=== PATIENT | male | born 1950 | race Caucasian/White ===

== ENCOUNTER 2020-10-09 09:08 | Emergency (ER) | payer MEDICARE, OTHER ==
[2020-10-09] MEDS ORDERED: Piperacillin/Tazobactam 4.5 GM in Sodium Chloride 0.9% 100 ML IV ONE (09:52)
[2020-10-09] MEDS ORDERED: Lactated Ringers 1,000 ML IV SCH (10:00)
--- NOTE | 2020-10-09 10:00 | EDM.PDOC ---
ED HPI GENERAL MEDICAL PROBLEM - General Chief Complaint: General Stated Complaint: HIP PAIN, ELEVATED BP Time Seen by Provider: 10/09/20 09:48 Source of Information: Reports: Patient, Family, Provider, RN Notes Reviewed History Limitations: Reports: No Limitations - History of Present Illness INITIAL COMMENTS - FREE TEXT/NARRATIVE: 70-year-old gentleman presents emergency department today with complaint of hip pain, he was initially evaluated in clinic call discussed case with clinic provider Ms. Kenny who had concern for sepsis as he had a fever tachycardic hypotensive in clinic was subsequently sent to the emergency department for further evaluation. States he started having hip pain a couple of days ago but last night got significantly worse developed a fever last night pain is worse when he lies down does get some improvement when he ambulates no nausea or vomiting no shortness of breath no other GI symptoms Left Hip Pain Score (Numeric/FACES): 9 - Related Data Allergies Allergy/AdvReac Type Severity Reaction Status Date / Time Sulfa (Sulfonamide Allergy Hives Verified 10/09/20 09:45 Antibiotics) Home Meds: Home Meds Insulin Aspart [NovoLOG] 0 unit SUBCNJ TID 10/09/20 [History] Insulin Detemir [Levemir] 40 unit SUBCUT BEDTIME 10/09/20 [History] Lisinopril/Hydrochlorothiazide [Lisinopril-Hctz 20-12.5 mg Tab] 1 tab PO DAILY 10/09/20 [History] Melatonin 10 mg PO BEDTIME 10/09/20 [History] Ubidecarenone [Coenzyme Q-10] 200 mg PO DAILY 10/09/20 [History] amLODIPine Besylate [Norvasc] 5 mg PO DAILY 10/09/20 [History] atorvaSTATin [Lipitor] 10 mg PO BEDTIME 10/09/20 [History] Past Medical History HEENT History: Reports: Impaired Vision Cardiovascular History: Reports: High Cholesterol, Hypertension Neurological History: Reports: Concussion Endocrine/Metabolic History: Reports: Diabetes, Type II - Infectious Disease History Infectious Disease History: Reports: Chicken Pox, Influenza, Measles, Mumps - Past Surgical History Musculoskeletal Surgical History: Reports: Shoulder Surgery Social & Family History - Tobacco Use Tobacco Use Status *Q: Never Tobacco User - Caffeine Use Caffeine Use: Reports: Soda - Recreational Drug Use Recreational Drug Use: No ED ROS GENERAL - Review of Systems Review Of Systems: See Below Constitutional: Reports: Fever, Chills HEENT: Reports: No Symptoms Respiratory: Reports: No Symptoms Cardiovascular: Reports: No Symptoms GI/Abdominal: Reports: No Symptoms : Reports: No Symptoms Musculoskeletal: Reports: Joint Pain (Hip pain left side) Neurological: Reports: No Symptoms ED EXAM, GENERAL - Physical Exam Exam: See Below Exam Limited By: No Limitations General Appearance: Alert, Mild Distress, Other (Chills) Respiratory/Chest: No Respiratory Distress, Lungs Clear, Normal Breath Sounds, No Accessory Muscle Use, Chest Non-Tender Cardiovascular: Regular Rate, Rhythm, No Murmur GI/Abdominal: Soft, Non-Tender Back Exam: Normal Inspection, Full Range of Motion, Other (Tenderness left side low back pelvic region). No: CVA Tenderness (R), CVA Tenderness (L) Extremities: Pedal Edema (Slight edema appreciated in the left leg) Course - Vital Signs Last Recorded V/S: Last Vital Signs Temp 99.3 F 10/09/20 11:23 Pulse 111 H 10/09/20 11:23 Resp 23 H 10/09/20 11:23 BP 108/53 L 10/09/20 11:23 Pulse Ox 91 L 10/09/20 11:23 - Orders/Labs/Meds Orders: Active Orders 24 hr Category Date Time Status Blood Pressure Mgt: Sepsis [RC] Q15MX2 Care 10/09/20 09:54 Active COVID-19/FLU A+B/RSV [MOLEC] Stat Lab 10/09/20 11:21 Ordered CULTURE BLOOD [BC] Urgent Lab 10/09/20 09:53 Ordered CULTURE BLOOD [BC] Urgent Lab 10/09/20 09:53 Ordered REFLEX LACTIC ACID YES OR NO [CHEM] Routine Lab 10/09/20 10:18 Received UA W/MICROSCOPIC [URIN] Stat Lab 10/09/20 09:53 Ordered Lactated Ringers [Ringers, Lactated] 1,000 ml Med 10/09/20 10:00 Active IV ASDIRECTED Blood Culture x2 Reflex Set [OM.PC] Urgent Oth 10/09/20 09:53 Ordered Isolation [COMM] Stat Oth 10/09/20 11:22 Ordered Severe Sepsis Onset Time [OM.PC] Stat Oth 10/09/20 09:53 Ordered Medication Orders Lactated Ringer's (Ringers, Lactated) 1,000 mls @ 999 mls/hr IV ASDIRECTED ELISSA Last Admin: 10/09/20 10:01 Dose: 999 mls/hr Documented by: CARLOS Labs: Laboratory Tests 10/09/20 10/09/20 10/09/20 Range/Units 10:01 10:01 10:01 WBC 5.4 (4.5-11.0) K/uL RBC 2.86 L (4.30-5.90) M/uL Hgb 8.8 L (12.0-15.0) g/dL Hct 27.2 L (40.0-54.0) % MCV 95 (80-98) fL MCH 31 (27-31) pg MCHC 32 (32-36) % Plt Count 151 (150-400) K/uL Neut % (Auto) 85.1 H (36-66) % Lymph % (Auto) 8.3 L (24-44) % [place] % (Auto) 5.6 (2-6) % Eos % (Auto) 0.4 L (2-4) % Baso % (Auto) 0.6 (0-1) % Sodium 140 (140-148) mmol/L Potassium 3.6 (3.6-5.2) mmol/L Chloride 100 (100-108) mmol/L Carbon Dioxide 21 (21-32) mmol/L Anion Gap 19.0 H (5.0-14.0) mmol/L BUN 30 H (7-18) mg/dL Creatinine 1.7 H (0.8-1.3) mg/dL Est Cr Clr Drug Dosing 34.17 mL/min Estimated GFR (MDRD) 40 L (>60) Glucose 129 H (74-106) mg/dL Lactic Acid (0.4-2.0) mmol/L Calcium 9.4 (8.5-10.1) mg/dL Total Bilirubin 1.5 H (0.2-1.0) mg/dL AST 42 H (15-37) U/L ALT 18 (12-78) U/L Alkaline Phosphatase 184 H (46-116) U/L Troponin I < 0.017 (0.000-0.056) ng/mL C-Reactive Protein 4.81 H (0.0-0.3) mg/dL Total Protein 7.3 (6.4-8.2) g/dL Albumin 3.8 (3.4-5.0) g/dL Globulin 3.5 (2.3-3.5) g/dL Albumin/Globulin Ratio 1.1 L (1.2-2.2) Lipase 77 (73-393) U/L Procalcitonin ng/mL 10/09/20 10/09/20 Range/Units 10:01 10:01 WBC (4.5-11.0) K/uL RBC (4.30-5.90) M/uL Hgb (12.0-15.0) g/dL Hct (40.0-54.0) % MCV (80-98) fL MCH (27-31) pg MCHC (32-36) % Plt Count (150-400) K/uL Neut % (Auto) (36-66) % Lymph % (Auto) (24-44) % [place] % (Auto) (2-6) % Eos % (Auto) (2-4) % Baso % (Auto) (0-1) % Sodium (140-148) mmol/L Potassium (3.6-5.2) mmol/L Chloride (100-108) mmol/L Carbon Dioxide (21-32) mmol/L Anion Gap (5.0-14.0) mmol/L BUN (7-18) mg/dL Creatinine (0.8-1.3) mg/dL Est Cr Clr Drug Dosing mL/min Estimated GFR (MDRD) (>60) Glucose (74-106) mg/dL Lactic Acid 8.0 H (0.4-2.0) mmol/L Calcium (8.5-10.1) mg/dL Total Bilirubin (0.2-1.0) mg/dL AST (15-37) U/L ALT (12-78) U/L Alkaline Phosphatase (46-116) U/L Troponin I (0.000-0.056) ng/mL C-Reactive Protein (0.0-0.3) mg/dL Total Protein (6.4-8.2) g/dL Albumin (3.4-5.0) g/dL Globulin (2.3-3.5) g/dL Albumin/Globulin Ratio (1.2-2.2) Lipase (73-393) U/L Procalcitonin 53.58 H* ng/mL Meds: Medications Generic Name Dose Route Start Last Admin Trade Name Freq PRN Reason Stop Dose Admin Lactated Ringer's 1,000 mls @ 999 mls/hr 10/09/20 10:00 10/09/20 10:01 Ringers, Lactated IV 999 mls/hr ASDIRECTED ELISSA Administration Discontinued Medications Generic Name Dose Route Start Last Admin Trade Name Freq PRN Reason Stop Dose Admin Piperacillin Sod/Tazobactam 100 mls @ 100 mls/hr 10/09/20 09:52 10/09/20 10:13 Sod 4.5 gm/ Sodium Chloride IV 10/09/20 10:51 100 mls/hr STAT ONE Administration Vancomycin HCl 1 gm/ Sodium 250 mls @ 150 mls/hr 10/09/20 10:34 10/09/20 11:06 Chloride IV 10/09/20 12:13 150 mls/hr ONETIME ONE Administration Sodium Chloride 70 mls @ 3 mls/sec 10/09/20 10:45 10/09/20 10:50 Normal Saline IV 10/09/20 10:46 3 mls/sec ASDIRECTED ELISSA Administration Iopamidol 80 ml 10/09/20 10:39 10/09/20 10:50 Iopamidol 612 Mg/Ml 500 Ml Multipack Bottle IV 10/09/20 10:40 80 ml ONETIME ONE Administration Sodium Chloride 10 ml 10/09/20 10:39 10/09/20 10:48 Sodium Chloride 0.9% 10 Ml Syringe FLUSH 10/09/20 10:40 10 ml ONETIME PRN Administration per radiology protocol Departure - Departure Time of Disposition: 12:29 Disposition: DC/Tfer to Acute Hospital 02 Condition: Poor Clinical Impression: Sepsis Qualifiers: Sepsis type: sepsis due to unspecified organism Sepsis acute organ dysfunction status: with acute organ dysfunction Severe sepsis acute organ dysfunction type: acute renal failure Acute renal failure type: unspecified Severe sepsis shock status: with septic shock Qualified Code(s): A41.9 - Sepsis, unspecified organism; R65.21 - Severe sepsis with septic shock; N17.9 - Acute kidney failure, unspecified - Discharge Information Referrals: Rosemary Christianson MD [Primary Care Provider] - Forms: ED Department Discharge Critical Care Note - Critical Care Note Total Time (mins): 40 Sepsis Event Note (ED) - Evaluation Sepsis Screening Result: Possible Sepsis Risk - Focused Exam Vital Signs: Vital Signs Temp Pulse Resp BP Pulse Ox 10/09/20 11:23 99.3 F 111 H 23 H 108/53 L 91 L 10/09/20 10:18 100 F 118 H 32 H 102/40 L 92 L 10/09/20 09:55 95/53 L 10/09/20 09:54 102/40 L 10/09/20 09:20 99.8 F 122 H 30 H 95/53 L 93 L - My Orders Last 24 Hours: My Active Orders 10/09/20 09:53 CULTURE BLOOD [BC] Urgent CULTURE BLOOD [BC] Urgent UA W/MICROSCOPIC [URIN] Stat Blood Culture x2 Reflex Set [OM.PC] Urgent Severe Sepsis Onset Time [OM.PC] Stat 10/09/20 09:54 Blood Pressure Mgt: Sepsis [RC] Q15MX2 10/09/20 10:00 Lactated Ringers [Ringers, Lactated] 1,000 ml IV ASDIRECTED 10/09/20 10:18 REFLEX LACTIC ACID YES OR NO [CHEM] Routine 10/09/20 11:21 COVID-19/FLU A+B/RSV [MOLEC] Stat 10/09/20 11:22 Isolation [COMM] Stat - Assessment/Plan Last 24 Hours: My Active Orders 10/09/20 09:53 CULTURE BLOOD [BC] Urgent CULTURE BLOOD [BC] Urgent UA W/MICROSCOPIC [URIN] Stat Blood Culture x2 Reflex Set [OM.PC] Urgent Severe Sepsis Onset Time [OM.PC] Stat 10/09/20 09:54 Blood Pressure Mgt: Sepsis [RC] Q15MX2 10/09/20 10:00 Lactated Ringers [Ringers, Lactated] 1,000 ml IV ASDIRECTED 10/09/20 10:18 REFLEX LACTIC ACID YES OR NO [CHEM] Routine 10/09/20 11:21 COVID-19/FLU A+B/RSV [MOLEC] Stat 10/09/20 11:22 Isolation [COMM] Stat Plan: Assessment Acuity = acute Site and laterality = sepsis Etiology = unknown Manifestations = fever Location of injury = Home Lab values = hemoglobin low at 8.8 consistent with normochromic anemia creatinine elevated 1.3 consistent with acute renal failure stage G3 B, lactic acid markedly elevated 8.0 consistent with lactic acidosis total bilirubin elevated 1.5 consistent with hyperbilirubinemia troponin was negative CRP elevated 4.81 procalcitonin markedly elevated at 53.58 CT scan describes an enlarged prostate with involvement into the bladder concern for neoplasm with pulmonary infiltrates concern for metastatic disease Plan Discussed case with Dr. Kelly emergency room physician at [address] [facility] who kindly excepted patient in transport will be transported via [facility] ground thus far blood cultures have been done been given 4.5 mg Zosyn combination 1 g Rocephin 2 L of lactated Ringer's will be transported via EMS ground This note was dictated using [employer] voice recognition software please call with any questions on syntax or grammar.
[2020-10-09] MEDS ORDERED: Sodium Chloride 0.9% 10 ML Syringe FLUSH PRN (10:39)
[2020-10-09] MEDS ORDERED: Iopamidol 612 MG/ML 500 ML Multipack Bottle IV ONE (10:39)
--- NOTE | 2020-10-09 11:10 | CR ---
CHEST: Portable 10/09/2020 at 10:41 AM CLINICAL HISTORY:Fever COMPARISON:None FINDINGS: Patient has diffuse patchy bilateral infiltrates. Heart size and pulmonary vascularity are normal. Impression: Diffuse bilateral pulmonary infiltrates.
--- NOTE | 2020-10-09 11:21 | CT ---
Abdomen Pelvis w Cont CLINICAL HISTORY: Left pelvic pain, fever COMPARISON: None. TECHNIQUE: Transverse scans were obtained from the base of the lungs to the pubic symphysis following oral contrast and IV infusion of contrast.Auto dosage reduction and iterative reconstructiontechniques employed. FINDINGS: The lung bases show diffuse patchy bilateral infiltrates and nodular densities. There is a small right pleural effusion. There is a minimal left effusion. Patient is a small hiatal hernia.. The liver shows no mass or biliary dilatation. The gallbladder has a normal appearance. The spleen has normal size and shape. The pancreas shows no mass or inflammatory change. The adrenal glands appear normal bilaterally . The kidneys contain a 1 cm cyst in the right kidney. The left kidney is hydronephrotic. There is a dilated left ureter along its length. The there is asymmetric soft tissue density and some urothelial thickening at the UVJ which is causing obstruction. The bladder base is thickened posteriorly. This is contiguous with a moderately enlarged and asymmetric prostate. There is also enlargement of the seminal vesicles.. The aorta shows diffuse atheromatous plaque without aneurysm. There are enlarged lymph nodes in the region of the inguinal canal bilaterally. Patient has had previous right inguinal hernia repair. The small intestinal gas pattern is nonspecific. The bones are heterogeneously dense with diffuse mottling. IMPRESSION: Left hydronephrosis and hydroureter. There is some urothelial thickening in the posterior bladder and involving the left UVJ causing obstruction. A urothelial nasal neoplasm is a consideration. There is also significant enlargement of the prostate which is contiguous posteriorly to this area of bladder wall thickening. Prostatic neoplasm invading the bladder base is also a consideration. Diffuse mottled density throughout the bony structures suggest sclerotic metastasis. This should be correlated with bone scan Patchy infiltrates in the lung bases with increased interstitial markings. There is also scattered nodularity. This may represent a diffuse pneumonia and/or pneumonitis. Pulmonary metastatic disease is not excluded. Right pleural effusion Inguinal and periiliac lymphadenopathy
[2020-10-09 12:26] LABS: CORONAVIRUS COVID-19 NAA NEGATIVE (NEGATIVE)
== END 2020-10-09 12:50 ==
LOC: JP.ED 09:08
DX: A41.9 Sepsis, unspecified organism (principal); R65.21 Severe sepsis with septic shock; N17.9 Acute kidney failure, unspecified; M25.552 Pain in left hip; E78.00 Pure hypercholesterolemia, unspecified; I10 Essential (primary) hypertension; E11.9 Type 2 diabetes mellitus without complications; Z79.4 Long term (current) use of insulin; Z79.899 Other long term (current) drug therapy; Z88.2 Allergy status to sulfonamides; Z20.822 Contact with and (suspected) exposure to COVID-19
CPT/HCPCS: 0241U; 36415; 71045; 71045-26; 74177; 74177-26; 80053; 83605; 83690; 84145; 84484; 85025; 86140; 87040; 87077; 96365; 96367; 99285-25; J2543; J3370; J7050; J7120; Q9967

== ENCOUNTER 2020-10-25 18:53 | Emergency (ER) | payer MEDICARE, OTHER ==
--- NOTE | 2020-10-26 00:39 | EDM.PDOC ---
ED HPI GENERAL MEDICAL PROBLEM - General Chief Complaint: Genitourinary Problem Stated Complaint: DRAIN TUBE FULL OF BLOOD, URINE IS RED Time Seen by Provider: 10/25/20 22:18 Source of Information: Reports: Patient History Limitations: Reports: No Limitations - History of Present Illness INITIAL COMMENTS - FREE TEXT/NARRATIVE: Dany is a 70-year-old male presenting to the ED for evaluation of hematuria coming from his nephrostomy tube and Craft catheter. 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 He states that his pain is manageable as long as he is not moving but the pain in the hip worsens with any type of activity. This is chronic and ongoing since his diagnosis. He is concerned because the hematuria initially was seen when he was in the hospital last week but he had cleared prior to discharge and just today started again. He called the nurse triage line who recommended that he come to the ER for evaluation. He denies any fever, chills, nausea or vomiting, worsening back pain, urgency, frequency, or burning with urination. He did have some clots in his nephrostomy tube and bag, however, the contents of the Craft were pretty much hematuria without significant clotting. - Related Data Allergies Allergy/AdvReac Type Severity Reaction Status Date / Time Sulfa (Sulfonamide Allergy Hives Verified 10/25/20 21:03 Antibiotics) Home Meds: Home Meds Insulin Aspart [NovoLOG] 0 unit SUBCNJ TID 10/09/20 [History] Insulin Detemir [Levemir] 10 unit SUBCUT BEDTIME 10/09/20 [History] Melatonin 10 mg PO BEDTIME 10/09/20 [History] Ubidecarenone [Coenzyme Q-10] 200 mg PO DAILY 10/09/20 [History] amLODIPine Besylate [Norvasc] 5 mg PO DAILY 10/09/20 [History] atorvaSTATin [Lipitor] 10 mg PO BEDTIME 10/09/20 [History] Bicalutamide [Casodex] 100 mg PO DAILY 10/25/20 [History] Past Medical History HEENT History: Reports: Impaired Vision Cardiovascular History: Reports: High Cholesterol, Hypertension Genitourinary History: Reports: Other (See Below) Other Genitourinary History: chronic craft cath. Neurological History: Reports: Concussion Endocrine/Metabolic History: Reports: Diabetes, Type II Oncologic (Cancer) History: Reports: Renal - Infectious Disease History Infectious Disease History: Reports: Chicken Pox, Influenza, Measles, Mumps - Past Surgical History Male Surgical History: Reports: Other (See Below) Other Male Surgeries/Procedures: drain in kidney Musculoskeletal Surgical History: Reports: Shoulder Surgery Social & Family History - Tobacco Use Tobacco Use Status *Q: Never Tobacco User Second Hand Smoke Exposure: No - Caffeine Use Caffeine Use: Reports: None - Recreational Drug Use Recreational Drug Use: No ED ROS GENERAL - Review of Systems Review Of Systems: See Below Constitutional: Reports: No Symptoms HEENT: Reports: No Symptoms Respiratory: Reports: No Symptoms Cardiovascular: Reports: No Symptoms Endocrine: Reports: No Symptoms : Reports: Hematuria, Other (Patient has a nephrostomy tube in the left as well as Craft catheter.) Musculoskeletal: Reports: Other (Left hip pain and back pain due to metastasis) Skin: Reports: Wound (Small amount of bleeding from the nephrostomy tube site.) Neurological: Reports: No Symptoms Psychiatric: Reports: No Symptoms Hematologic/Lymphatic: Reports: No Symptoms Immunologic: Reports: No Symptoms ED EXAM, RENAL/ - Physical Exam Exam: See Below Exam Limited By: No Limitations General Appearance: Alert, No Apparent Distress, Anxious Eye Exam: Bilateral Eye: EOMI Head: Atraumatic, Normocephalic Neck: Normal Inspection Respiratory/Chest: No Respiratory Distress, Lungs Clear, Normal Breath Sounds Cardiovascular: Normal Peripheral Pulses, Regular Rate, Rhythm, No Murmur GI/Abdominal: Normal Bowel Sounds, Soft, Non-Tender Back Exam: Decreased Range of Motion (Secondary to pain in the left hip), Other (Small amount of dried blood around the nephrostomy tube site on the skin.) Neurological: Alert, Oriented, Normal Cognition, No Motor/Sensory Deficits Psychiatric: Normal Affect Skin Exam: Warm, Dry Course - Vital Signs Last Recorded V/S: Last Vital Signs Temp 36.7 C 10/25/20 21:13 Pulse 91 10/25/20 21:13 Resp 16 10/25/20 21:13 BP 147/49 H 10/25/20 21:13 Pulse Ox 95 10/25/20 21:13 - Orders/Labs/Meds Labs: Laboratory Tests 06/09/21 06/09/21 06/09/21 Range/Units 22:45 22:45 22:45 WBC 4.9 (4.5-11.0) K/uL RBC 2.91 L (4.30-5.90) M/uL Hgb 9.0 L (12.0-15.0) g/dL Hct 27.6 L (40.0-54.0) % MCV 95 (80-98) fL MCH 31 (27-31) pg MCHC 33 (32-36) % Plt Count 256 (150-400) K/uL Add Manual Diff Yes Neutrophils % (Manual) 58 (36-66) % Band Neutrophils % 1 L (5-11) % Lymphocytes % (Manual) 28 (24-44) % Monocytes % (Manual) 11 H (2-6) % Eosinophils % (Manual) 2 (2-4) % PT 11.5 (9.5-12.0) sec INR 1.06 (0.80-1.20) APTT 26.3 L (27.0-36.0) sec Sodium 139 L (140-148) mmol/L Potassium 4.7 (3.6-5.2) mmol/L Chloride 103 (100-108) mmol/L Carbon Dioxide 25 (21-32) mmol/L Anion Gap 15.7 H (5.0-14.0) mmol/L BUN 16 (7-18) mg/dL Creatinine 1.0 (0.8-1.3) mg/dL Est Cr Clr Drug Dosing 57.00 mL/min Estimated GFR (MDRD) > 60 (>60) Glucose 359 H (74-106) mg/dL Calcium 8.6 (8.5-10.1) mg/dL Total Bilirubin 0.6 D (0.2-1.0) mg/dL AST 13 L (15-37) U/L ALT 12 (12-78) U/L Alkaline Phosphatase 686 H D (46-116) U/L Total Protein 6.6 (6.4-8.2) g/dL Albumin 2.7 L (3.4-5.0) g/dL Globulin 3.9 H (2.3-3.5) g/dL Albumin/Globulin Ratio 0.7 L (1.2-2.2) Urine Color (YELLOW) Urine Appearance (CLEAR) Urine pH (5.0-8.0) Ur Specific [place] (1.008-1.030) Urine Protein (NEGATIVE) mg/dL Urine Glucose (UA) (NEGATIVE) mg/dL Urine Ketones (NEGATIVE) mg/dL Urine Occult Blood (NEGATIVE) Urine Nitrite (NEGATIVE) Urine Bilirubin (NEGATIVE) Urine Urobilinogen (0.2-1.0) EU/dL Ur Leukocyte Esterase (NEGATIVE) Urine RBC (0-5) Urine WBC (0-5) Ur Epithelial Cells Amorphous Sediment Urine Bacteria Urine Mucus Urine Other 10/25/20 Range/Units 23:00 WBC (4.5-11.0) K/uL RBC (4.30-5.90) M/uL Hgb (12.0-15.0) g/dL Hct (40.0-54.0) % MCV (80-98) fL MCH (27-31) pg MCHC (32-36) % Plt Count (150-400) K/uL Add Manual Diff Neutrophils % (Manual) (36-66) % Band Neutrophils % (5-11) % Lymphocytes % (Manual) (24-44) % Monocytes % (Manual) (2-6) % Eosinophils % (Manual) (2-4) % PT (9.5-12.0) sec INR (0.80-1.20) APTT (27.0-36.0) sec Sodium (140-148) mmol/L Potassium (3.6-5.2) mmol/L Chloride (100-108) mmol/L Carbon Dioxide (21-32) mmol/L Anion Gap (5.0-14.0) mmol/L BUN (7-18) mg/dL Creatinine (0.8-1.3) mg/dL Est Cr Clr Drug Dosing mL/min Estimated GFR (MDRD) (>60) Glucose (74-106) mg/dL Calcium (8.5-10.1) mg/dL Total Bilirubin (0.2-1.0) mg/dL AST (15-37) U/L ALT (12-78) U/L Alkaline Phosphatase (46-116) U/L Total Protein (6.4-8.2) g/dL Albumin (3.4-5.0) g/dL Globulin (2.3-3.5) g/dL Albumin/Globulin Ratio (1.2-2.2) Urine Color Red A (YELLOW) Urine Appearance Turbid A (CLEAR) Urine pH 7.0 (5.0-8.0) Ur Specific [place] 1.020 (1.008-1.030) Urine Protein 100 H (NEGATIVE) mg/dL Urine Glucose (UA) 500 H (NEGATIVE) mg/dL Urine Ketones 15 H (NEGATIVE) mg/dL Urine Occult Blood Large H (NEGATIVE) Urine Nitrite Negative (NEGATIVE) Urine Bilirubin Negative (NEGATIVE) Urine Urobilinogen 0.2 (0.2-1.0) EU/dL Ur Leukocyte Esterase Trace H (NEGATIVE) Urine RBC Packed H (0-5) Urine WBC 0-5 (0-5) Ur Epithelial Cells Not seen Amorphous Sediment Not seen Urine Bacteria Few Urine Mucus Not seen Urine Other - Re-Assessments/Exams Free Text/Narrative Re-Assessment/Exam: 10/26/20 00:45 I reviewed the patient's labs showing a hemoglobin of 9.1 with a hematocrit of 27.6. This is consistent with when he was in the hospital in [place]. His comprehensive metabolic panel significant for a glucose of 359. His urinalysis is significant for gross hematuria with packed RBCs and 0-5 WBCs with trace leukocyte esterase. I discussed the case with Dr. Rowan from urology at [facility] who states as long as the tubes are functioning properly and the patient is vitally stable without fever, there is really not much the needs to be done. She recommended that the patient push plenty of fluids to prevent significant clot formation. This was relayed to the patient. At this time, the patient is suitable for discharge home in satisfactory condition. Follow-up with urology as previously arranged. 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 Rowan who stated that as long as the tubes are functioning properly and yours vitally stable that there is really nothing to worry about at this time. Metastatic tumors do bleed from time to time due to the frail vasculature. She recommended drinking plenty of fluids and follow-up as usual. Sepsis Event Note (ED) - Evaluation Sepsis Screening Result: No Definite Risk - Focused Exam Vital Signs: Vital Signs Temp Pulse Resp BP Pulse Ox 10/25/20 21:13 36.7 C 91 16 147/49 H 95 10/25/20 20:34 36.7 C 91 16 147/49 H 95 - Problem List & Annotations (1) Hematuria SNOMED Code(s): 50978575 Code(s): R31.9 - HEMATURIA, UNSPECIFIED Status: Acute Priority: High Current Visit: Yes Qualifiers: Hematuria type: unspecified type Qualified Code(s): R31.9 - Hematuria, unspecified (2) Prostate cancer metastatic to bone SNOMED Code(s): 601683756 Code(s): C61 - MALIGNANT NEOPLASM OF PROSTATE; C79.51 - SECONDARY MALIGNANT NEOPLASM OF BONE Status: Acute Priority: High Current Visit: Yes (3) Metastatic 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
== END 2020-10-26 00:59 | disposition home or self-care (01) ==
LOC: JP.ED 18:53
DX: C61 Malignant neoplasm of prostate (principal); C79.02 Secondary malignant neoplasm of left kidney and renal pelvis; R31.9 Hematuria, unspecified; E78.00 Pure hypercholesterolemia, unspecified; I10 Essential (primary) hypertension; E11.9 Type 2 diabetes mellitus without complications; Z88.2 Allergy status to sulfonamides; Z79.4 Long term (current) use of insulin; Z79.899 Other long term (current) drug therapy
CPT/HCPCS: 36415; 51702; 80053; 81001; 85025; 85610; 85730; 99283; 99283-25

== ENCOUNTER 2020-11-03 17:06 | Emergency (ER) | payer MEDICARE, OTHER ==
--- NOTE | 2020-11-03 18:56 | EDM.PDOC ---
ED HPI GENERAL MEDICAL PROBLEM - General Chief Complaint: Abdominal Pain Stated Complaint: CATHETER PROBLEMS Time Seen by Provider: 11/03/20 18:42 Source of Information: Reports: Patient History Limitations: Reports: No Limitations - History of Present Illness INITIAL COMMENTS - FREE TEXT/NARRATIVE: Dany is a 70-year-old male who is known to me presenting to the ED with marked increase in bladder pain that is waxing and waning for the last 2 days. 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 The catheter was replaced on October 25, 2020 after I saw the patient for urinary retention and catheter failure. He apparently was admitted to the hospital in [place] on October 26, 2020 for sepsis and continues to get antibiotics through his PICC line 3 times a day at home. He reports over the last 24 hours he has had increasing pain in the low abdomen and although the Craft has been draining, he has had episodes of urine coming around the catheter with the most recent being today when he was getting ready to step into the shower. This is usually accompanied by significant low abdominal pain and possibly bladder spasm. It does appear that the catheter is continuing to drain although at what rate is unknown. The patient did have his nephrostomy tube replaced during his hospitalization on October 26, 2020 and that is looking better. He has been afebrile on the antibiotics. Nursing brought the bladder scanner in and he has greater than 999 mL in the bladder. - Related Data Allergies Allergy/AdvReac Type Severity Reaction Status Date / Time Sulfa (Sulfonamide Allergy Hives Verified 10/25/20 21:03 Antibiotics) Home Meds: Home Meds Insulin Aspart [NovoLOG] 0 unit SUBCNJ TID 10/09/20 [History] Insulin Detemir [Levemir] 10 unit SUBCUT BEDTIME 10/09/20 [History] Melatonin 10 mg PO BEDTIME 10/09/20 [History] Ubidecarenone [Coenzyme Q-10] 200 mg PO DAILY 10/09/20 [History] amLODIPine Besylate [Norvasc] 5 mg PO DAILY 10/09/20 [History] atorvaSTATin [Lipitor] 10 mg PO BEDTIME 10/09/20 [History] Bicalutamide [Casodex] 100 mg PO DAILY 10/25/20 [History] Past Medical History HEENT History: Reports: Impaired Vision Cardiovascular History: Reports: High Cholesterol, Hypertension Genitourinary History: Reports: Other (See Below) Other Genitourinary History: chronic craft cath. Neurological History: Reports: Concussion Endocrine/Metabolic History: Reports: Diabetes, Type II Oncologic (Cancer) History: Reports: Renal - Infectious Disease History Infectious Disease History: Reports: Chicken Pox, Influenza, Measles, Mumps - Past Surgical History Male Surgical History: Reports: Other (See Below) Other Male Surgeries/Procedures: drain in kidney Musculoskeletal Surgical History: Reports: Shoulder Surgery Social & Family History - Caffeine Use Caffeine Use: Reports: None ED ROS GENERAL - Review of Systems Review Of Systems: See Below Constitutional: Reports: Fatigue HEENT: Reports: No Symptoms Respiratory: Reports: No Symptoms Cardiovascular: Reports: Edema (Worsening lower extremity edema) Endocrine: Reports: No Symptoms GI/Abdominal: Reports: Abdominal Pain (Suprapubic) : Reports: Incontinence (Flow of urine around the catheter), Pain, Urgency, Urinary Retention, Other (Craft catheter is draining but at a slower rate. Significant bladder spasms.) Musculoskeletal: Reports: No Symptoms Skin: Reports: No Symptoms Neurological: Reports: No Symptoms Psychiatric: Reports: No Symptoms Hematologic/Lymphatic: Reports: No Symptoms Immunologic: Reports: No Symptoms ED EXAM, RENAL/ - Physical Exam Exam: See Below Exam Limited By: No Limitations General Appearance: Alert, Anxious, Moderate Distress GI/Abdominal: Normal Bowel Sounds, Distended (Fullness in the low abdomen with tenderness to palpation), Tender (Suprapubic tenderness to palpation). No: Guarding, Rigid, Rebound (Male) Exam: Other (Craft catheter in place and draining very slowly. Bladder scanner shows greater than 999 mL) Course - Vital Signs Last Recorded V/S: Last Vital Signs Temp 36.8 C 11/03/20 19:53 Pulse 90 11/03/20 19:53 Resp 16 11/03/20 19:53 BP 144/57 H 11/03/20 19:53 Pulse Ox 98 11/03/20 19:53 - Orders/Labs/Meds Orders: Active Orders 24 hr Category Date Time Status Urinary Catheter Assessment [RC] ASDIRECTED Care 11/03/20 18:57 Active Labs: Laboratory Tests 11/03/20 Range/Units 19:12 Urine Color Yellow (YELLOW) Urine Appearance Cloudy A (CLEAR) Urine pH 5.5 (5.0-8.0) Ur Specific [place] 1.020 (1.008-1.030) Urine Protein 100 H (NEGATIVE) mg/dL Urine Glucose (UA) Negative (NEGATIVE) mg/dL Urine Ketones Trace H (NEGATIVE) mg/dL Urine Occult Blood Large H (NEGATIVE) Urine Nitrite Negative (NEGATIVE) Urine Bilirubin Negative (NEGATIVE) Urine Urobilinogen 0.2 (0.2-1.0) EU/dL Ur Leukocyte Esterase Moderate H (NEGATIVE) Urine RBC 10-20 H (0-5) Urine WBC Semi-packed H (0-5) Ur Epithelial Cells Not seen Amorphous Sediment Few Urine Bacteria Moderate Urine Mucus Not seen Urine Other See note - Re-Assessments/Exams Free Text/Narrative Re-Assessment/Exam: 11/03/20 20:01 nurse was able to irrigate out the catheter which is now functioning properly. There was quite a bit of pannus and sediment that was initially expressed once the catheter was flowing again. We will instruct the on how to routinely flush the catheter. Urinalysis was obtained and is unremarkable for acute infection. At this time patient is suitable for discharge home. Indications return to the ED were discussed. Departure - Departure Time of Disposition: 20:02 Disposition: Home, Self-Care 01 Clinical Impression: Encounter for assessment of Craft catheter - Discharge Information Referrals: [facility]RA [Other] Forms: ED Department Discharge Care Plan Goals: Irrigate the Craft catheter if you have any difficulties with urine output. If you start to feel the bladder pain again, please return immediately to the ER for reevaluation. Sepsis Event Note (ED) - Focused Exam Vital Signs: Vital Signs Temp Pulse Resp BP Pulse Ox 11/03/20 19:53 36.8 C 90 16 144/57 H 98 11/03/20 18:40 36.8 C 90 16 144/57 H 98 - Problem List & Annotations (1) Encounter for assessment of Craft catheter SNOMED Code(s): 879134876 Code(s): Z76.89 - [facility] OTH CIRCUMSTANCES Status: Acute Priority: Low Current Visit: Yes - Problem List Review Problem List Initiated/Reviewed/Updated: Yes - My Orders Last 24 Hours: My Active Orders 11/03/20 18:57 Urinary Catheter Assessment [RC] ASDIRECTED - Assessment/Plan Last 24 Hours: My Active Orders 11/03/20 18:57 Urinary Catheter Assessment [RC] ASDIRECTED
== END 2020-11-03 20:33 | disposition home or self-care (01) ==
LOC: JP.ED 17:06
DX: Z46.6 Encounter for fitting and adjustment of urinary device (principal); E78.00 Pure hypercholesterolemia, unspecified; I10 Essential (primary) hypertension; E11.9 Type 2 diabetes mellitus without complications; Z79.4 Long term (current) use of insulin; Z79.899 Other long term (current) drug therapy; Z88.2 Allergy status to sulfonamides
CPT/HCPCS: 81001; 99283; 99283-25

== ENCOUNTER 2021-01-06 00:14 | Emergency (ER) | payer OTHER, MEDICARE ==
--- NOTE | 2021-01-06 00:54 | EDM.PDOC ---
ED HPI GENERAL MEDICAL PROBLEM - General Chief Complaint: Genitourinary Problem Stated Complaint: TROUBLE URINATING Time Seen by Provider: 01/06/21 00:35 Source of Information: Reports: Patient, Family History Limitations: Reports: No Limitations - History of Present Illness INITIAL COMMENTS - FREE TEXT/NARRATIVE: 70-year-old male presents with bladder outlet obstruction. He had a TURP earlier this week, discharged in the hospital this morning and the Craft was removed and within 3 hours he started redeveloping urine retention. He arrives tonight with just a small amount of dribbling, very uncomfortable and lower abdominal distention and pressure. Onset: Gradual Duration: Hour(s): (Symptoms have been building for the last 8 hours) Associated Symptoms: Denies: Cough, Diaphoresis, Fever/Chills, Headaches, Loss of Appetite, Nausea/Vomiting, Shortness of Breath Pelvic Pain Score (Numeric/FACES): 9 - Related Data Allergies Allergy/AdvReac Type Severity Reaction Status Date / Time chloramphenicol Allergy Other Verified 01/06/21 00:48 Sulfa (Sulfonamide Allergy Hives Verified 01/06/21 00:48 Antibiotics) sulfadiazine Allergy Other Verified 01/06/21 00:48 Home Meds: Home Meds Bicalutamide [Casodex] 50 mg PO DAILY 11/09/20 [History] Insulin Aspart [NovoLOG] 4 units SQ .BREAKFAST 11/09/20 [History] Insulin Aspart [NovoLOG] 5 units SQ .LUNCH 11/09/20 [History] Insulin Aspart [NovoLOG] 10 units SQ .SUPPER 11/09/20 [History] Insulin Detemir [Levemir] 18 units SQ BEDTIME 11/09/20 [History] Leuprolide [Lupron Depot 1-Month] 7.5 mg IM ASDIRECTED 11/09/20 [History] Melatonin 10 mg PO BEDTIME PRN 11/09/20 [History] amLODIPine [Norvasc] 5 mg PO DAILY 11/09/20 [History] atorvaSTATin [Lipitor] 10 mg PO BEDTIME 11/09/20 [History] oxyCODONE 5 mg PO Q4H PRN 11/09/20 [History] polyethylene glycoL 3350 [MiraLAX] 17 g PO DAILY PRN 11/09/20 [History] Ciprofloxacin [Ciprofloxacin HCl] 500 mg PO DAILY 12/15/20 [History] Furosemide 40 mg PO .MWF 12/15/20 [History] Potassium Chloride 20 meq PO .[facility] 12/15/20 [History] Sodium Bicarbonate 650 mg PO TID 12/15/20 [History] Past Medical History HEENT History: Reports: Impaired Vision Cardiovascular History: Reports: High Cholesterol, Hypertension Genitourinary History: Reports: Other (See Below) Other Genitourinary History: chronic craft cath. Neurological History: Reports: Concussion Endocrine/Metabolic History: Reports: Diabetes, Type II Oncologic (Cancer) History: Reports: Prostate, Renal - Infectious Disease History Infectious Disease History: Reports: Chicken Pox, Influenza, Measles, Mumps - Past Surgical History Male Surgical History: Reports: Other (See Below) Other Male Surgeries/Procedures: drain in kidney Musculoskeletal Surgical History: Reports: Shoulder Surgery Social & Family History - Caffeine Use Caffeine Use: Reports: Soda ED ROS GENERAL - Review of Systems Review Of Systems: See Below Constitutional: Reports: Malaise. Denies: Fever, Chills HEENT: Reports: No Symptoms Respiratory: Denies: Shortness of Breath Cardiovascular: Denies: Chest Pain GI/Abdominal: Reports: Abdominal Pain. Denies: Nausea, Vomiting : Reports: Hematuria, Urinary Retention Skin: Reports: Pallor Neurological: Denies: Headache ED EXAM, RENAL/ - Physical Exam Exam: See Below Exam Limited By: No Limitations General Appearance: Alert, Moderate Distress Head: Atraumatic Respiratory/Chest: No Respiratory Distress, Lungs Clear GI/Abdominal: Other (Lower abdomen is full, tender to palpation and bladder scan reveals greater than 900 cc of urine) Neurological: Alert, Oriented Psychiatric: Anxious Skin Exam: Warm, Dry Course - Vital Signs Last Recorded V/S: Last Vital Signs Temp 97.1 F 01/06/21 00:51 Pulse 97 01/06/21 00:51 Resp 18 01/06/21 00:51 BP 177/81 H 01/06/21 00:51 Pulse Ox 100 01/06/21 00:51 - Re-Assessments/Exams Free Text/Narrative Re-Assessment/Exam: 01/06/21 00:54 A Craft was placed, initially there was some bloody urine but that cleared and up to 1 L of urine was released. Symptoms markedly improved. I think this should stay on until Friday morning, 30 hours from now. Departure - Departure Time of Disposition: 01:17 Disposition: Home, Self-Care 01 Clinical Impression: Urinary retention - Discharge Information Instructions: Acute Urinary Retention, Male Referrals: PCP,None [Primary Care Provider] - Forms: ED Department Discharge Care Plan Goals: Return Friday morning to remove Craft catheter unless you are comfortable removing it on your own. Return sooner if you develop problems or obstruction while the catheter is in place. Sepsis Event Note (ED) - Evaluation Sepsis Screening Result: No Definite Risk - Focused Exam Vital Signs: Vital Signs Temp Pulse Resp BP Pulse Ox 01/06/21 00:51 97.1 F 97 18 177/81 H 100 01/06/21 00:47 97.1 F 97 18 177/81 H 100
== END 2021-01-06 01:17 | disposition home or self-care (01) ==
LOC: JP.ED 00:14
DX: R33.9 Retention of urine, unspecified (principal); E78.00 Pure hypercholesterolemia, unspecified; I10 Essential (primary) hypertension; E11.9 Type 2 diabetes mellitus without complications; Z88.8 Allergy status to other drugs, medicaments and biological substances; Z88.2 Allergy status to sulfonamides; Z79.4 Long term (current) use of insulin; Z79.899 Other long term (current) drug therapy
CPT/HCPCS: 51702; 99283-25

== ENCOUNTER 2021-01-07 20:29 | Emergency (ER) | payer MEDICARE, OTHER ==
--- NOTE | 2021-01-07 20:59 | EDM.PDOC ---
ED HPI GENERAL MEDICAL PROBLEM - General Chief Complaint: Genitourinary Problem Stated Complaint: TROUBLE URINATING Time Seen by Provider: 01/07/21 20:40 Source of Information: Reports: Patient, Family History Limitations: Reports: No Limitations - History of Present Illness INITIAL COMMENTS - FREE TEXT/NARRATIVE: 70-year-old male who received a TURP last week, was seen in the emergency room 36 hours ago with acute urinary retention. A Craft catheter was placed, and he had to remove this morning. Since that time he has had some steady dribbling but is again developed pressure and inability to develop a urine stream. He does not feel as many symptoms as he had 2 days ago as far as retention and discomfort, but he called his urologist and they recommended he come in to get checked for an infection. However on arrival a brief exam did reveal he was distended with lower abdominal pain with palpation. Onset: Gradual Duration: Hour(s): (Gradual worsening for the past 8 hours) Location: Reports: Abdomen (Lower abdomen) Associated Symptoms: Reports: No Other Symptoms. Denies: Chest Pain, Fever/Chills, Loss of Appetite, Nausea/Vomiting, Shortness of Breath Bladder Pain Score (Numeric/FACES): 7 - Related Data Allergies Allergy/AdvReac Type Severity Reaction Status Date / Time chloramphenicol Allergy Other Verified 01/07/21 20:45 Sulfa (Sulfonamide Allergy Hives Verified 01/07/21 20:45 Antibiotics) sulfadiazine Allergy Other Verified 01/07/21 20:45 Home Meds: Home Meds Bicalutamide [Casodex] 50 mg PO DAILY 11/09/20 [History] Insulin Aspart [NovoLOG] 4 units SQ .BREAKFAST 11/09/20 [History] Insulin Aspart [NovoLOG] 5 units SQ .LUNCH 11/09/20 [History] Insulin Aspart [NovoLOG] 10 units SQ .SUPPER 11/09/20 [History] Insulin Detemir [Levemir] 18 units SQ BEDTIME 11/09/20 [History] Leuprolide [Lupron Depot 1-Month] 7.5 mg IM ASDIRECTED 11/09/20 [History] Melatonin 10 mg PO BEDTIME PRN 11/09/20 [History] amLODIPine [Norvasc] 5 mg PO DAILY 11/09/20 [History] atorvaSTATin [Lipitor] 10 mg PO BEDTIME 11/09/20 [History] oxyCODONE 5 mg PO Q4H PRN 11/09/20 [History] polyethylene glycoL 3350 [MiraLAX] 17 g PO DAILY PRN 11/09/20 [History] Ciprofloxacin [Ciprofloxacin HCl] 500 mg PO DAILY 12/15/20 [History] Furosemide 40 mg PO .MWF 12/15/20 [History] Potassium Chloride 20 meq PO .[facility] 12/15/20 [History] Sodium Bicarbonate 650 mg PO TID 12/15/20 [History] Past Medical History HEENT History: Reports: Impaired Vision Cardiovascular History: Reports: High Cholesterol, Hypertension Genitourinary History: Reports: Other (See Below) Other Genitourinary History: chronic craft cath. Neurological History: Reports: Concussion Endocrine/Metabolic History: Reports: Diabetes, Type II Oncologic (Cancer) History: Reports: Prostate, Renal - Infectious Disease History Infectious Disease History: Reports: Chicken Pox, Influenza, Measles, Mumps - Past Surgical History Male Surgical History: Reports: Other (See Below) Other Male Surgeries/Procedures: drain in kidney Musculoskeletal Surgical History: Reports: Shoulder Surgery Social & Family History - Tobacco Use Tobacco Use Status *Q: Never Tobacco User - Caffeine Use Caffeine Use: Reports: None - Recreational Drug Use Recreational Drug Use: No ED ROS GENERAL - Review of Systems Review Of Systems: See Below Constitutional: Denies: Fever, Chills HEENT: Reports: No Symptoms Respiratory: Denies: Shortness of Breath Cardiovascular: Denies: Chest Pain GI/Abdominal: Reports: Abdominal Pain. Denies: Nausea, Vomiting : Reports: Urgency, Urinary Retention. Denies: Dysuria Skin: Reports: No Symptoms Neurological: Reports: No Symptoms ED EXAM, RENAL/ - Physical Exam Exam: See Below Exam Limited By: No Limitations General Appearance: Alert, Anxious, Mild Distress (Looks uncomfortable) Eye Exam: Bilateral Eye: Normal Inspection Respiratory/Chest: No Respiratory Distress Cardiovascular: Regular Rate, Rhythm. No: Tachycardia GI/Abdominal: Other (Patient is tender to palpation over the lower abdomen with urine retention and bladder distention) Extremities: Other (Trace bilateral pitting edema at the ankles) Neurological: Alert, Oriented Course - Vital Signs Last Recorded V/S: Last Vital Signs Temp 97.2 F 01/07/21 20:47 Pulse 83 01/07/21 20:47 Resp 16 01/07/21 20:47 BP 157/65 H 01/07/21 20:47 Pulse Ox 98 01/07/21 20:47 - Orders/Labs/Meds Orders: Active Orders 24 hr Category Date Time Status Insert Urinary Catheter [OM.PC] Q24H Care 01/07/21 21:00 Ordered Labs: Laboratory Tests 01/07/21 Range/Units 20:54 Urine Color Yellow (YELLOW) Urine Appearance Cloudy A (CLEAR) Urine pH 6.0 (5.0-8.0) Ur Specific [place] 1.015 (1.008-1.030) Urine Protein 30 H (NEGATIVE) mg/dL Urine Glucose (UA) 500 H (NEGATIVE) mg/dL Urine Ketones Negative (NEGATIVE) mg/dL Urine Occult Blood Large H (NEGATIVE) Urine Nitrite Negative (NEGATIVE) Urine Bilirubin Negative (NEGATIVE) Urine Urobilinogen 0.2 (0.2-1.0) EU/dL Ur Leukocyte Esterase Small H (NEGATIVE) Urine RBC 30-40 H (0-5) Urine WBC 5-10 H (0-5) Ur Epithelial Cells Not seen Amorphous Sediment Not seen Urine Bacteria Few Urine Mucus Not seen - Re-Assessments/Exams Free Text/Narrative Re-Assessment/Exam: 01/07/21 21:02 Bladder scan was obtained and again showed a large amount of urine, a 16-gauge Craft catheter was placed without difficulty. Urine looked clear, there was less blood than when we placed the Craft 2 days ago. Symptoms markedly improved and almost 800 cc of urine was released. A UA was ordered. 01/07/21 21:22 UA returned with RBCs which would be expected, a few WBCs and bacteria but he is on Cipro and there is no inflammatory component or significant infection findings. Craft will be left in until he can talk with his urologist. Departure - Departure Time of Disposition: 21:36 Disposition: Home, Self-Care 01 Clinical Impression: Urinary retention - Discharge Information Instructions: Acute Urinary Retention, Male, [id number] Referrals: PCP,None [Primary Care Provider] - Forms: ED Department Discharge Care Plan Goals: Leave Craft catheter in until you have a chance to talk with your urologist, and finish your antibiotic as prescribed. Continue other medications as prescribed. Sepsis Event Note (ED) - Evaluation Sepsis Screening Result: No Definite Risk - Focused Exam Vital Signs: Vital Signs Temp Pulse Resp BP Pulse Ox 01/07/21 20:47 97.2 F 83 16 157/65 H 98 01/07/21 20:41 97.2 F 83 16 157/65 H 98 - My Orders Last 24 Hours: My Active Orders 01/07/21 21:00 Insert Urinary Catheter [OM.PC] Q24H - Assessment/Plan Last 24 Hours: My Active Orders 01/07/21 21:00 Insert Urinary Catheter [OM.PC] Q24H
== END 2021-01-07 21:36 | disposition home or self-care (01) ==
LOC: JP.ED 20:29
DX: R33.9 Retention of urine, unspecified (principal); E78.00 Pure hypercholesterolemia, unspecified; I10 Essential (primary) hypertension; E11.9 Type 2 diabetes mellitus without complications; Z88.2 Allergy status to sulfonamides; Z88.8 Allergy status to other drugs, medicaments and biological substances; Z79.4 Long term (current) use of insulin; Z79.899 Other long term (current) drug therapy
CPT/HCPCS: 51702; 81001; 99284-25

== ENCOUNTER 2021-01-15 22:26 | Emergency (ER) | payer OTHER ==
[2021-01-16] MEDS ORDERED: cefTRIAXone 1 GM in Sodium Chloride 0.9% 50 ML IV ONE (00:39)
--- NOTE | 2021-01-16 01:05 | EDM.PDOC ---
ED HPI GENERAL MEDICAL PROBLEM - General Chief Complaint: Genitourinary Problem Stated Complaint: FEVER AND CLOUDY URINE Time Seen by Provider: 01/15/21 23:00 Source of Information: Reports: Patient, Family History Limitations: Reports: No Limitations - History of Present Illness INITIAL COMMENTS - FREE TEXT/NARRATIVE: 70-year-old male with a chronic indwelling Craft catheter and a history of urosepsis, presents with generalized malaise, low-grade fever, and cloudy urine after stopping Cipro 3 days ago. According to his he had a temperature of "100.5" at home. No significant fevers or chills, no shortness of breath or cough. He does not have any pain. Onset: Gradual Duration: Day(s): (Symptoms have started over the past 2 days) Associated Symptoms: Reports: Fever/Chills, Loss of Appetite, Malaise. Denies: Chest Pain, Cough, Nausea/Vomiting, Shortness of Breath, Weakness Left Lower Abdomen Pain Score (Numeric/FACES): 2 - Related Data Allergies Allergy/AdvReac Type Severity Reaction Status Date / Time chloramphenicol Allergy Other Verified 01/15/21 22:54 Sulfa (Sulfonamide Allergy Hives Verified 01/15/21 22:54 Antibiotics) sulfadiazine Allergy Other Verified 01/15/21 22:54 Home Meds: Home Meds Bicalutamide [Casodex] 50 mg PO DAILY 11/09/20 [History] Insulin Aspart [NovoLOG] 4 units SQ .BREAKFAST 11/09/20 [History] Insulin Aspart [NovoLOG] 5 units SQ .LUNCH 11/09/20 [History] Insulin Aspart [NovoLOG] 10 units SQ .SUPPER 11/09/20 [History] Insulin Detemir [Levemir] 18 units SQ BEDTIME 11/09/20 [History] Leuprolide [Lupron Depot 1-Month] 7.5 mg IM ASDIRECTED 11/09/20 [History] Melatonin 10 mg PO BEDTIME PRN 11/09/20 [History] amLODIPine [Norvasc] 5 mg PO DAILY 11/09/20 [History] atorvaSTATin [Lipitor] 10 mg PO BEDTIME 11/09/20 [History] oxyCODONE 5 mg PO Q4H PRN 11/09/20 [History] polyethylene glycoL 3350 [MiraLAX] 17 g PO DAILY PRN 11/09/20 [History] Ciprofloxacin [Ciprofloxacin HCl] 500 mg PO DAILY 12/15/20 [History] Furosemide 40 mg PO .MWF 12/15/20 [History] Potassium Chloride 20 meq PO .MWF 12/15/20 [History] Sodium Bicarbonate 650 mg PO TID 12/15/20 [History] Past Medical History HEENT History: Reports: Impaired Vision Cardiovascular History: Reports: High Cholesterol, Hypertension Genitourinary History: Reports: Other (See Below) Other Genitourinary History: chronic craft cath. Neurological History: Reports: Concussion Endocrine/Metabolic History: Reports: Diabetes, Type II Oncologic (Cancer) History: Reports: Prostate, Renal - Infectious Disease History Infectious Disease History: Reports: Chicken Pox, Influenza, Measles, Mumps - Past Surgical History Male Surgical History: Reports: Other (See Below) Other Male Surgeries/Procedures: drain in kidney Musculoskeletal Surgical History: Reports: Shoulder Surgery Social & Family History - Tobacco Use Tobacco Use Status *Q: Never Tobacco User - Caffeine Use Caffeine Use: Reports: None - Recreational Drug Use Recreational Drug Use: No ED ROS GENERAL - Review of Systems Review Of Systems: See Below Constitutional: Reports: Fever, Chills, Malaise HEENT: Denies: Throat Pain Respiratory: Denies: Shortness of Breath, Cough Cardiovascular: Denies: Chest Pain GI/Abdominal: Denies: Abdominal Pain, Nausea, Vomiting Skin: Reports: No Symptoms Neurological: Reports: Weakness. Denies: Headache Psychiatric: Reports: No Symptoms ED EXAM, GENERAL - Physical Exam Exam: See Below Exam Limited By: No Limitations General Appearance: Alert, No Apparent Distress Eye Exam: Bilateral Eye: Normal Inspection Head: Atraumatic Neck: Supple, Non-Tender Respiratory/Chest: Lungs Clear Cardiovascular: Regular Rate, Rhythm. No: Tachycardia GI/Abdominal: Soft, Non-Tender. No: Guarding (Male) Exam: Other (Catheter is functional, cloudy urine is present). No: Suprapubic Fullness Extremities: Normal Inspection, Pedal Edema (Patient does have a trace of lower extremity edema at the ankles bilaterally) Neurological: Alert, Oriented Course - Vital Signs Last Recorded V/S: Last Vital Signs Temp 99.1 F 01/15/21 22:58 Pulse 93 01/15/21 22:58 Resp 16 01/15/21 22:58 BP 164/73 H 01/15/21 22:58 Pulse Ox 99 01/15/21 22:58 - Orders/Labs/Meds Orders: Active Orders 24 hr Category Date Time Status CULTURE URINE [RM] Stat Lab 01/16/21 00:30 Received Labs: Laboratory Tests 01/16/21 Range/Units 00:30 Urine Color Yellow (YELLOW) Urine Appearance Cloudy A (CLEAR) Urine pH 7.0 (5.0-8.0) Ur Specific [place] 1.010 (1.008-1.030) Urine Protein 100 H (NEGATIVE) mg/dL Urine Glucose (UA) Negative (NEGATIVE) mg/dL Urine Ketones Negative (NEGATIVE) mg/dL Urine Occult Blood Large H (NEGATIVE) Urine Nitrite Negative (NEGATIVE) Urine Bilirubin Negative (NEGATIVE) Urine Urobilinogen 0.2 (0.2-1.0) EU/dL Ur Leukocyte Esterase Large H (NEGATIVE) Urine RBC 5-10 H (0-5) Urine WBC 50-75 H (0-5) Ur Epithelial Cells Rare Amorphous Sediment Not seen Urine Bacteria Few Urine Mucus Not seen Urine Other Meds: Medications Discontinued Medications Generic Name Dose Route Start Last Admin Trade Name Freq PRN Reason Stop Dose Admin Ceftriaxone Sodium 1 gm/ 50 mls @ 100 mls/hr 01/16/21 00:39 01/16/21 00:51 Sodium Chloride IV 01/16/21 01:08 100 mls/hr ONETIME ONE Administration - Re-Assessments/Exams Free Text/Narrative Re-Assessment/Exam: 01/16/21 05:15 UA was obtained and does have 75-100 WBCs and some bacteria. A culture was obtained, the patient was given 1 g of IV Rocephin and will be followed by 500 mg of cephalexin 3 times a day. He remained very stable and afebrile while in the emergency room. Departure - Departure Time of Disposition: 01:28 Disposition: Home, Self-Care 01 Clinical Impression: UTI, Urinary tract infectious disease - Discharge Information Instructions: Urinary Tract Infection, Adult Referrals: Rosemary Christianson MD [Primary Care Provider] - Forms: ED Department Discharge Care Plan Goals: Continue your regular medications and take antibiotic for 7 days as prescribed. Return anytime if worsening such as increased fever, pain, unable to take medication due to nausea or vomiting or other concerns. Otherwise consider rechecking in 3 to 4 days if not improving satisfactorily, we will be in touch with you with culture results if medication changes are needed. Sepsis Event Note (ED) - Evaluation Sepsis Screening Result: No Definite Risk - Focused Exam Vital Signs: Vital Signs Temp Pulse Resp BP Pulse Ox 01/15/21 22:58 99.1 F 93 16 164/73 H 99 01/15/21 22:48 99.1 F 93 16 164/73 H 99 - My Orders Last 24 Hours: My Active Orders 01/16/21 00:30 CULTURE URINE [RM] Stat - Assessment/Plan Last 24 Hours: My Active Orders 01/16/21 00:30 CULTURE URINE [RM] Stat
== END 2021-01-16 01:34 | disposition home or self-care (01) ==
LOC: JP.ED 22:26
DX: N39.0 Urinary tract infection, site not specified (principal); E78.00 Pure hypercholesterolemia, unspecified; I10 Essential (primary) hypertension; E11.9 Type 2 diabetes mellitus without complications; Z88.2 Allergy status to sulfonamides; Z88.8 Allergy status to other drugs, medicaments and biological substances; Z79.4 Long term (current) use of insulin; Z79.899 Other long term (current) drug therapy
CPT/HCPCS: 81001; 87086; 87088; 96365; 99283; J0696